=== PATIENT | female | born 1965 | race Caucasian/White ===

== ENCOUNTER → 2016-11-27 | Outpatient (CLI) | payer BC ==
[~2016-11-27] VITALS: Ht 172.7 cm; Wt 92.1 kg
[~2016-11-27] MED LIST: DRIS50002 PO; GLYCOPYRROLATE INJ 0.2 MG/ML 2 ML VIAL As Ordered ONE; LEVO112T2 PO; LIDOCAINE 2% INJ 100 MG/5 ML SDV (FOR ANES.) As Ordered ONE; PROPOFOL 200 MG/20 ML VIAL As Ordered ONE
[2016-11-27] MEDS: NS 500 ML IV SCH ×2 (07:00→07:15)
--- NOTE | 2016-11-27 08:14 | ROOR ---
Patient Name: Fanta Hernandes Procedure Date: 11/27/2016 7:27 AM Date of : 1965 Age: 51 Room: [facility] Gender: Female Note Status: Finalized Procedure: Upper GI endoscopy Indications: Heartburn Providers: DO Mora Mckenna MD: THAIS HARDIN Requesting Provider: Medicines: Propofol per Anesthesia Complications: No immediate complications. Procedure: Pre-Anesthesia Assessment: - Prior to the procedure, a History and Physical was performed, and patient medications and allergies were reviewed. The patient is competent. The risks and benefits of the procedure and the sedation options and risks were discussed with the patient. All questions were answered and informed consent was obtained. Patient identification and proposed procedure were verified by the physician, the nurse, the anesthesiologist and the medical coding technician in the endoscopy suite. Mental Status Examination: alert and oriented. Airway Examination: normal oropharyngeal airway and neck mobility. Respiratory Examination: clear to auscultation. CV Examination: normal. Prophylactic Antibiotics: The patient does not require prophylactic antibiotics. Prior Anticoagulants: The patient has taken no previous anticoagulant or antiplatelet agents. ASA Grade Assessment: II - A patient with mild systemic disease. After reviewing the risks and benefits, the patient was deemed in satisfactory condition to undergo the procedure. The anesthesia plan was to use monitored anesthesia care (MAC). Immediately prior to administration of medications, the patient was re-assessed for adequacy to receive sedatives. The heart rate, respiratory rate, oxygen saturations, blood pressure, adequacy of pulmonary ventilation, and response to care were monitored throughout the procedure. The physical status of the patient was re-assessed after the procedure. The Endoscope was introduced through the mouth, and advanced to the third part of duodenum. The upper GI endoscopy was accomplished without difficulty. The patient tolerated the procedure well. Findings: Localized mild inflammation characterized by congestion (edema) and erythema was found in the prepyloric region of the stomach. Biopsies were taken with a cold forceps for Helicobacter pylori testing. The Z-line was irregular. Biopsies were taken with a cold forceps for histology. The exam was otherwise without abnormality. Impression: - Gastritis. Biopsied. - Z-line irregular. Biopsied. - The examination was otherwise normal. Recommendation: - Patient has a contact number available for emergencies. The signs and symptoms of potential delayed complications were discussed with the patient. Return to normal activities tomorrow. Written discharge instructions were provided to the patient. - Telephone my office for pathology results in 1 week. Cheikh Recinos DO 11/27/2016 8:13:48 AM This report has been signed electronically. Number of Addenda: 0 Note Initiated On: 11/27/2016 7:27 AM Estimated Blood Loss: Estimated blood loss was minimal.
--- NOTE | 2016-11-27 08:18 | ROOR ---
Patient Name: Fanta Hernandes Procedure Date: 11/27/2016 7:30 AM Date of : 1965 Age: 51 Room: [facility] Gender: Female Note Status: Finalized Procedure: Colonoscopy Indications: Screening for colorectal malignant neoplasm Providers: DO Mora Mckenna MD: THAIS HARDIN Requesting Provider: Medicines: Propofol per Anesthesia Complications: No immediate complications. Procedure: Pre-Anesthesia Assessment: - Prior to the procedure, a History and Physical was performed, and patient medications and allergies were reviewed. The patient is competent. The risks and benefits of the procedure and the sedation options and risks were discussed with the patient. All questions were answered and informed consent was obtained. Patient identification and proposed procedure were verified by the physician, the nurse, the anesthesiologist and the donor services technician in the endoscopy suite. Mental Status Examination: alert and oriented. Airway Examination: normal oropharyngeal airway and neck mobility. Respiratory Examination: clear to auscultation. CV Examination: normal. Prophylactic Antibiotics: The patient does not require prophylactic antibiotics. Prior Anticoagulants: The patient has taken no previous anticoagulant or antiplatelet agents. ASA Grade Assessment: II - A patient with mild systemic disease. After reviewing the risks and benefits, the patient was deemed in satisfactory condition to undergo the procedure. The anesthesia plan was to use monitored anesthesia care (MAC). Immediately prior to administration of medications, the patient was re-assessed for adequacy to receive sedatives. The heart rate, respiratory rate, oxygen saturations, blood pressure, adequacy of pulmonary ventilation, and response to care were monitored throughout the procedure. The physical status of the patient was re-assessed after the procedure. The Colonoscope was introduced through the anus and advanced to the cecum, identified by the appendiceal orifice, ileocecal valve and palpation. The colonoscopy was performed without difficulty. The patient tolerated the procedure well. Findings: Two semi-pedunculated polyps were found in the sigmoid colon and descending colon. The polyps were 4 to 8 mm in size. These polyps were removed with a hot snare. Resection and retrieval were complete. Estimated blood loss was minimal. Multiple carpet-like polyps were found in the sigmoid colon. The polyps were medium in size. These were biopsied with a cold forceps for histology. Estimated blood loss was minimal. A few small-mouthed diverticula were found in the sigmoid colon. The exam was otherwise without abnormality on direct and retroflexion views. Impression: - Two 4 to 8 mm polyps in the sigmoid colon and in the descending colon, removed with a hot snare. Resected and retrieved. - Multiple medium polyps in the sigmoid colon. Biopsied. - Diverticulosis in the sigmoid colon. - The examination was otherwise normal on direct and retroflexion views. Recommendation: - Patient has a contact number available for emergencies. The signs and symptoms of potential delayed complications were discussed with the patient. Return to normal activities tomorrow. Written discharge instructions were provided to the patient. - Repeat colonoscopy date to be determined after pending pathology results are reviewed for surveillance after piecemeal polypectomy. - Await pathology results. - Telephone my office for pathology results in 1 week. Cheikh Recinos DO 11/27/2016 8:18:08 AM This report has been signed electronically. Number of Addenda: 0 Note Initiated On: 11/27/2016 7:30 AM Estimated Blood Loss: Estimated blood loss was minimal.
[2016-11-27 08:35] VITALS: BP 118/78
== END ==
LOC: M OPP 06:27
PROVIDERS: ATTEND Surgery
DX: Z12.11 Encounter for screening for malignant neoplasm of colon (principal); D12.4 Benign neoplasm of descending colon; D12.5 Benign neoplasm of sigmoid colon; K57.30 Diverticulosis of large intestine without perforation or abscess without bleeding; R12 Heartburn; K29.70 Gastritis, unspecified, without bleeding; K22.8 Other specified diseases of esophagus; E03.9 Hypothyroidism, unspecified; K21.9 Gastro-esophageal reflux disease without esophagitis; Z87.891 Personal history of nicotine dependence; Z79.899 Other long term (current) drug therapy

== ENCOUNTER → 2017-04-03 | Outpatient (CLI) | payer BC ==
[~2017-04-03] MED LIST changes: -GLYCOPYRROLATE INJ 0.2 MG/ML 2 ML VIAL As Ordered ONE; -LIDOCAINE 2% INJ 100 MG/5 ML SDV (FOR ANES.) As Ordered ONE; -PROPOFOL 200 MG/20 ML VIAL As Ordered ONE
--- NOTE | 2017-04-03 09:59 | REPMRS ---
Patient History The patient states she had a clinical breast exam in 03/2017. Patient is postmenopausal. Family history of colorectal cancer in sister. Took hormonal contraceptives for 20 years. Took unspecified hormones for 5 years. Digital Woman Screen Mammo: April 03, 2017 - Exam #: [id number] Bilateral CC and MLO view(s) were taken. Technologist: Kiara Clay, Technologist Prior study comparison: April 02, 2016, digital woman screen mammo performed at [facility]. March 07, 2015, digital woman screen mammo performed at [facility]. FINDINGS: There are scattered fibroglandular densities. There has been no change in the appearance of the mammogram from the prior studies. There is a mild amount of residual fibroglandular tissue which is fairly symmetric. There is no interval development of dominant mass, architectural distortion, or clustered microcalcification suggestive of malignancy. ASSESSMENT: BI-RADS/ACR category 1 mammogram. Negative. Recommendation Routine screening mammogram in 1 year (for women over age 40). This mammogram was interpreted with the aid of an FDA-approved computer-aided dectection system. Electronically Signed By: Cheikh Ritchie MD 04/03/17 0958
== END ==
LOC: M WHC 08:41
PROVIDERS: ATTEND Nurse Practitioner Women's Health
DX: Z12.31 Encounter for screening mammogram for malignant neoplasm of breast (principal)

== ENCOUNTER → 2017-04-03 | Outpatient (REF) | payer BC | LOC: M SFHCWAGY 10:11 | PROVIDERS: ATTEND Nurse Practitioner Women's Health | DX: Z12.4 Encounter for screening for malignant neoplasm of cervix (principal) ==

== ENCOUNTER → 2018-07-01 | Outpatient (CLI) | payer BC ==
[~2018-07-01] MED LIST changes: -DRIS50002 PO; +DRIS50003 PO
--- NOTE | 2018-07-01 14:22 | REPMRS ---
Patient History The patient states she had a clinical breast exam in 07/04 Family history of colorectal cancer in sister. Took hormonal contraceptives for 20 years. Took unspecified hormones for 5 years. Digital Woman Screen Mammo: July 01, 2018 - Exam #: [id number] Bilateral CC and MLO view(s) were taken. Technologist: Priscila Guardado, Technologist Prior study comparison: April 03, 2017, digital woman screen mammo performed at [facility]. April 02, 2016, digital woman screen mammo performed at [facility]. March 07, 2015, digital woman screen mammo performed at [facility]. FINDINGS: There are scattered fibroglandular densities. There has been no change in the appearance of the mammogram from the prior studies. There is a mild amount of scattered fibroglandular density which is fairly symmetric. There is no interval development of dominant mass, architectural distortion, or clustered microcalcification suggestive of malignancy. 3-D tomosynthesis shows no additional findings. Assessment: BI-RADS/ACR category 1 mammogram. Negative. Recommendation Routine screening mammogram of both breasts in 1 year (for women over age 40). This patient's Lifetime Breast Cancer RIsk is estimated at 10.7 %. This mammogram was interpreted with the aid of an FDA-approved computer-aided dectection system. Electronically Signed By: Manuel Chaney MD 07/01/18 1383
== END ==
LOC: M WHC 11:06
PROVIDERS: ATTEND Nurse Practitioner Women's Health
DX: Z12.31 Encounter for screening mammogram for malignant neoplasm of breast (principal); Z92.29 Personal history of other drug therapy; Z92.0 Personal history of contraception; Z80.0 Family history of malignant neoplasm of digestive organs

== ENCOUNTER 2018-10-14 09:00 | Day surgery (SDC) | payer BC ==
[~2018-10-14] VITALS: Ht 172.7 cm; Wt 90.9 kg
[2018-10-14] MEDS ORDERED: KETOROLAC 30 MG/ML VIAL (J1885) IV ONE (09:15)
[2018-10-14] MEDS ORDERED: NS 1,000 ML IV ONE (09:15)
[2018-10-14 09:29] LABS: BASO # 0.1 10^3/uL (0.0-0.2); BASO % 0.8 % (0.0-1.0); EOS # 0.1 10^3/uL (0.0-0.50); EOS % 0.5 % (0.0-3.0); HEMATOCRIT 40.6 % (36.0-47.0); HEMOGLOBIN 13.6 g/dl (12.0-15.5); LYMPH # 2.3 10^3/uL (1.5-4.5); LYMPH % 16.4 % (24.0-44.0); MEAN CORPUSCULAR HEMOGLOBIN 31.3 pg (27.0-33.0); MEAN CORPUSCULAR HGB CONC 33.5 g/dl (32.0-36.5); MEAN CORPUSCULAR VOLUME 93.3 fl (80.0-96.0); MONO # 0.8 10^3/uL (0.0-0.8); MONO % 5.3 % (0.0-5.0); NEUTROPHILS # 10.9 10^3/uL (1.8-7.7); NEUTROPHILS % 76.2 % (36.0-66.0); PLATELET COUNT, AUTOMATED 247 10^3/uL (150-450); RED BLOOD COUNT 4.35 10^6/uL (4.00-5.40); WHITE BLOOD COUNT 14.3 10^3/uL (4.0-10.0)
[2018-10-14 09:52] LABS: ALBUMIN 4.4 GM/DL (3.2-5.2); ALT/SGPT 26 U/L (12-78); AMYLASE 20 U/L (25-115); BILIRUBIN,DIRECT 0.1 MG/DL (0.0-0.2); BILIRUBIN,TOTAL 0.4 MG/DL (0.2-1.0); BLOOD UREA NITROGEN 11 MG/DL (7-18); CALCIUM LEVEL 9.2 MG/DL (8.5-10.1); CARBON DIOXIDE LEVEL 27 MEQ/L (21-32); CHLORIDE LEVEL 102 MEQ/L (98-107); CREATININE FOR GFR 0.68 MG/DL (0.55-1.30); GLOMERULAR FILTRATION RATE > 60.0 (>51); GLUCOSE, FASTING 111 MG/DL (70-100); LIPASE 219 U/L (73-393); POTASSIUM SERUM 4.1 MEQ/L (3.5-5.1); SODIUM LEVEL 135 MEQ/L (136-145); TOTAL PROTEIN 7.3 GM/DL (6.4-8.2)
[2018-10-14] MEDS ORDERED: ISOVUE-370 76% 100ML VIAL (Q9967) As Ordered ONE (10:19)
--- NOTE | 2018-10-14 11:25 | REP ---
CT ABDOMEN AND PELVIS WITHOUT CONTRAST: CT abdomen and pelvis performed without oral or IV contrast. Sagittal and coronal reconstruction images are performed. The visualized lung bases demonstrate no evidence of acute infiltrate. There is a small hiatal hernia. There is as small right inguinal hernia containing an incarcerated loop of small bowel and a small amount of fluid. There is resultant small bowel obstruction with moderate dilatation of multiple small bowel loops proximal to this. Liver is grossly unremarkable. Gallbladder appears to contain complex material with some calcification in the wall of the gallbladder. I see no biliary dilatation. The spleen, adrenals, pancreas and kidneys appear grossly unremarkable. There is no hydronephrosis bilaterally. There is no abdominal aortic aneurysm with mild atherosclerotic calcifications. I see no adenopathy, free air or free fluid. I see no pelvic mass. Urinary bladder is grossly unremarkable. Appendix is not visualized. IMPRESSION: Incarcerated right inguinal hernia contains an obstructed small bowel loop and a small amount of fluid. There is small bowel obstruction as a result with multiple moderately dilated small bowel loops in the abdomen. No free air or free fluid. No renal or ureteral calculus and no hydroureteronephrosis. There are calcifications in the gallbladder wall, which contains complex material. I cannot exclude underlying gallbladder mass. Electronically Signed by Cheikh Ritchie MD 10/16/2018 11:46 A
[2018-10-14] MEDS ORDERED: MORPHINE 4 MG/ML 1ML VIAL/SYRINGE (J2270) IV ONE (11:30)
[2018-10-14] MEDS ORDERED: ONDANSETRON 4MG/2ML VIAL (J2405) IV ONE (11:45)
[2018-10-14] MEDS ORDERED: BUPIVACAINE/EPIN 0.25% 30 ML VIAL As Ordered ONE (16:53)
[2018-10-14] MEDS ORDERED: ONDANSETRON 4MG/2ML VIAL (J2405) As Ordered ONE (17:07)
[2018-10-14] MEDS ORDERED: LIDOCAINE 2% INJ 100 MG/5 ML SDV (FOR ANES.) As Ordered ONE ×3 (17:07→18:21)
[2018-10-14] MEDS ORDERED: dexameTHASONE 4 MG/ML 1ML VIAL (J1100) As Ordered ONE (17:07)
[2018-10-14] MEDS ORDERED: ROCURONIUM BROMIDE 50 MG/5 ML VIAL As Ordered ONE ×2 (17:07→18:32)
[2018-10-14] MEDS ORDERED: MIDAZOLAM INJ 2 MG/2 ML VIAL (J2250) As Ordered ONE (17:07)
[2018-10-14] MEDS ORDERED: PROPOFOL 200 MG/20 ML VIAL As Ordered ONE ×2 (17:07→17:52)
[2018-10-14] MEDS ORDERED: fentaNYL 100 MCG/2 ML INJECTION (J3010) As Ordered ONE ×2 (17:08→17:52)
[2018-10-14] MEDS ORDERED: ceFAZolin 1GM INJ (J0690 PER 500MG) As Ordered ONE (17:08)
[2018-10-14] MEDS ORDERED: SUGAMMADEX SODIUM 500 MG/5 ML VIAL (BRIDION) As Ordered ONE (18:07)
[2018-10-14] MEDS ORDERED: KETOROLAC 60 MG/2 ML VIAL (J1885) As Ordered ONE (18:08)
[2018-10-14] MEDS ORDERED: ACETAMINOPHEN 1000MG 100ML IV BTL (OFIRMEV) (J0131 PER 10MG) As Ordered ONE (18:08)
[2018-10-14] MEDS ORDERED: D5W/LR 1,000 ML IV SCH (18:47)
[2018-10-14] MEDS ORDERED: ONDANSETRON 4MG/2ML VIAL (J2405) IV PRN ×2 (19:00→19:15)
[2018-10-14] MEDS ORDERED: MORPHINE 4 MG/ML 1ML VIAL/SYRINGE (J2270) IV PRN (19:00)
[2018-10-14] MEDS ORDERED: ACETAMINOPHEN TAB 650MG DOSE (2X325MG) PO PRN (19:00)
[2018-10-14] MEDS ORDERED: NORCO, ANEXSIA 5/325MG TABLET (HYDROcodone/ACETAMINOPHEN) PO PRN (19:00)
[2018-10-14] MEDS ORDERED: METOCLOPRAMIDE INJ 10MG/2ML VIAL (J2765) IV PRN ×2 (19:00→19:15)
[2018-10-14] MEDS ORDERED: PROMETHAZINE INJ 25 MG/ML VIAL (J2550) IV PRN (19:00)
[2018-10-14] MEDS ORDERED: fentaNYL 100 MCG/2 ML INJECTION (J3010) IV PRN (19:15)
[2018-10-14] MEDS ORDERED: PERCOCET 5MG/325MG TAB PO PRN (19:15)
[2018-10-14] MEDS ORDERED: LR 1,000 ML IV SCH (19:15)
[2018-10-14 19:50] VITALS: BP 129/61
[2018-10-14 20:20] VITALS: BP 108/57
[2018-10-14] MEDS: KETOROLAC 30 MG/ML VIAL (J1885) IV SCH (20:39)
[2018-10-14 20:50] VITALS: BP 112/63
[2018-10-14 21:50] VITALS: BP 105/58
[2018-10-14 22:50] VITALS: BP 108/55
[2018-10-14 23:50] VITALS: BP 108/63
[2018-10-15 00:50] VITALS: BP 119/57
[2018-10-15] MEDS: KETOROLAC 30 MG/ML VIAL (J1885) IV SCH ×2 (02:47→08:40)
[2018-10-15 04:00] VITALS: BP 99/55
[2018-10-15] MEDS ORDERED: LEVOTHYROXINE 112MCG TABLET (0.112MG) PO SCH (06:00)
--- NOTE | 2018-10-15 06:11 | HPE ---
DATE OF ADMISSION: 10/14/2018 CHIEF COMPLAINT: Abdominal pain, specifically right lower quadrant pain. HISTORY OF PRESENT ILLNESS: The patient is a 53-year-old female who presents with approximately 24 hours of abdominal pain but has noticed over the last year that she has had a bulge in the right inguinal area and recalls even further back than the last year that she has felt a lump in the right groin area along the groin crease. She states that it has not been painful or problematic but notices occasional swelling in this area. In any case this area became painful and uncomfortable approximately 12 hours prior to admission and presents to the emergency room with an incarcerated right inguinal / possible femoral hernia on CAT scan. She had the evidence of small bowel obstruction. I was asked to see her earlier today and once I saw her I was able to partially reduce this hernia and she had some improvement of this and the size of the hernia actually decreased by half when I saw her and more importantly later on after placing her in Trendelenburg and putting an ice pack on, after about an hour of time I reexamined her and was able to reduce this area down to approximately 2 cm in size compared to the 6-8 cm size lump that I felt in the groin. After doing this she felt relief of the discomfort, was not having any more pain in the groin, was not complaining of any abdominal pain, no crampy abdominal pain and she did well with this until she got up to use the bathroom to urinate and then developed pain and swelling back in the groin area. Thus we discussed with the patient proceeding with operative intervention for this. PAST MEDICAL HISTORY: Past medical history is significant for history of: 1. Hyperthyroidism. 2. Colonoscopy with diverticulosis and colonic polyps. 3. Gastroesophageal (GE) reflux with some gastritis. 4. Hyperthyroidism on image done earlier. MEDICATIONS: - Synthroid - Drisdol - vitamin D complex SOCIAL HISTORY: History of smoking. PHYSICAL EXAMINATION: GENERAL: 53-year-old female who looks stated age. HEENT is unremarkable. NECK: Supple without adenopathy. LUNGS: Clear to auscultation without crackles, wheezes or rhonchi. HEART: Regular without murmur. ABDOMEN: Abdomen is soft, nondistended, nontender. No guarding, no rebound. No peritoneal signs are appreciated and essentially has a very benign-appearing abdominal exam and despite having the evidence of a small bowel obstruction on her CAT scan there really is no evidence on her abdominal physical exam. In the right groin as I described earlier, she did have a palpable mass in the groin. Initially this was mildly uncomfortable with palpation and it sounds as though she had this attempted to be reduced by the emergency room physician after she came back from the CAT scan and I anticipate she probably reduced the small bowel at that time. Otherwise, it may have been the second time that I examined when I was able to reduce more of the contents of the hernia but at this point she had good resolution of abdominal pain and groin pain, suggesting that the obstruction has resolved. IMPRESSION AND PLAN: The patient had some improvement. Unfortunately with standing up/and using the bathroom she noticed increasing pain and swelling in the right groin and thus wee discussed proceeding with operative intervention for this. The plan would be exploration of the right groin with probable inguinal hernia repair (possible femoral hernia repair) given the CAT scan is suggestive of a femoral hernia more so than a typical inguinal hernia given its location despite the report suggesting it was an inguinal hernia. In any case we have discussed the fact that with this bowel obstruction will open the hernia sac and if there a damaged bowel she may require a small bowel resection, although I feel this is unlikely given her clinical course today and will plan on operative repair of this. Depending on the hernia, if this is a typical inguinal hernia then a hernia repair with mesh is the repair that I have discussed with her as well as a possible plug repair of a femoral hernia should this be the case. The risks as well as benefits have been discussed with her at length and she understands and would like to proceed with this as soon as possible.
--- NOTE | 2018-10-15 06:27 | RO ---
DATE OF PROCEDURE: 10/14/2018 PREOPERATIVE DIAGNOSIS: Right groin hernia. POSTOPERATIVE DIAGNOSIS: Right incarcerated femoral hernia. PROCEDURE: Repair of incarcerated right femoral hernia with mesh. SURGEON: Dr. Nimesh Aguilera BEHAVIORAL HEALTH PROFESSIONAL: ANESTHESIA: General endotracheal anesthesia. ESTIMATED BLOOD LOSS: Minimal. FLUIDS: Crystalloid. BRIEF PROCEDURE SUMMARY: The patient was taken operating room and was given general anesthesia. After adequate anesthesia and preoperative antibiotics were given, the patient was prepped and draped in the usual sterile fashion. Next, a curvilinear incision overlying the palpable mass in the right groin area was made with skin knife. Electrocautery was used to cut through dermis and underlying subcutaneous tissue down through Mary Lou's layer which was actually a relatively thickened layer, but there was some edema starting from this layer deeper into the deeper subcutaneous tissue and up to the external oblique. The external oblique muscle was followed to level of where the hernia was and this was followed circumferentially to the level of what appeared to the femoral canal. Once this was dissected out, then a small incision along the inguinal ligament was made to release the femoral hernia to some extent. Once this was released, then I was able to mobilize the hernia a little bit more into the wound itself, entering the hernia sac itself. There was some clear fluid in this, but the fascial defect was only about 8 mm in size and I did not see any small bowel within this itself. I did not see any evidence of turbid fluid, no bloody fluid that suggested some bowel infarction or bowel compromise. Thus after mobilizing the hernia sac all the way to the level of just above the fascia, I transected this and then ligated the hernia sac circumferential and then placed this in the preperitoneal space. A hernia plug was created using ultra Pro mesh and rolling it up into a plug and placing this in the preperitoneal space through this fascial defect. It was about 7-8 mm in size. The edges of the mesh were then sutured to the inguinal ligament superiorly and the pubis laterally. The small incision over the inguinal ligament that helped divide this and make it easier to mobilize the hernia sac was closed prior to this plug placement with some [id number] #0 Vicryl sutures. Next, subcutaneous tissue, Mary Lou's layer was closed with interrupted #2-0 Vicryl, #3-0 Vicryl was used to approximate dermis, #4-0 Vicryl was used to approximate the skin. Steri-Strips and a dry sterile dressing was applied. The patient was awakened, extubated and brought to the recovery room awake, alert and hemodynamically stable. Sponge and needle counts were correct times two.
[2018-10-15 08:00] VITALS: BP 97/52
[2018-10-15] MEDS ORDERED: IBUP-1022 PO (09:57)
== END 2018-10-15 12:20 | disposition home or self-care (01) ==
LOC: M ED 09:00 → M SDC 16:00 → M PED 19:50 → M SDC 10-15 12:20
PROVIDERS: ATTEND Surgery
DX: K41.30 Unilateral femoral hernia, with obstruction, without gangrene, not specified as recurrent (principal); E03.9 Hypothyroidism, unspecified; E66.9 Obesity, unspecified; G47.33 Obstructive sleep apnea (adult) (pediatric); K21.9 Gastro-esophageal reflux disease without esophagitis; K57.30 Diverticulosis of large intestine without perforation or abscess without bleeding; Z72.0 Tobacco use; Z92.3 Personal history of irradiation; Z86.010 Personal history of colon polyps
CPT/HCPCS: 49553; 74176; 80048; 80076; 82150; 83690; 85025; 88302; 96374; 96375; 99284; C1781; J0131; J0690; J1100; J1885; J2250; J2270; J2405; J3010

== ENCOUNTER → 2020-07-04 | Outpatient (CLI) | payer BC ==
[~2020-07-04] MED LIST changes: +IBUP-1022 PO
--- NOTE | 2020-07-04 08:51 | REPMRS ---
Patient History The patient states she had a clinical breast exam in 06/2020 Family history of colorectal cancer in sister. Took hormonal contraceptives for 20 years. Took unspecified hormones for 5 years. 3D TOMOSYNTHESIS WAS PERFORMED. [facility] for [facility]%. Volpara breast density a. Digital Woman Screen Mammo: July 04, 2020 - Exam #: [id number] Bilateral CC and MLO view(s) were taken. Technologist: Priscila Guardado, Technologist Prior study comparison: July 02, 2019, bilateral digital woman screen mammo performed at [facility]. July 01, 2018, bilateral digital woman screen mammo performed at [facility]. FINDINGS: There are scattered fibroglandular densities. There has been no change in the appearance of the mammogram from the prior studies. There is a mild amount of residual fibroglandular tissue which is fairly symmetric. There is no interval development of dominant mass, architectural distortion, or clustered microcalcification suggestive of malignancy. Assessment: BI-RADS/ACR category 1 mammogram. Negative Mammogram. Recommendation Routine screening mammogram in 1 year (for women over age 40). This mammogram was interpreted with the aid of an FDA-approved computer-aided dectection system. Electronically Signed By: Cheikh Ritchie MD 07/04/20 0876
== END ==
LOC: M WHC 08:09
PROVIDERS: ATTEND Nurse Practitioner Women's Health
DX: Z12.31 Encounter for screening mammogram for malignant neoplasm of breast (principal)

== ENCOUNTER → 2022-10-03 | Outpatient (REF) | payer OTHER | LOC: M SFHCWAGY 13:26 | PROVIDERS: ATTEND Nurse Practitioner Family | DX: Z12.4 Encounter for screening for malignant neoplasm of cervix (principal) | CPT/HCPCS: 87624; G0123 ==

== ENCOUNTER → 2022-10-03 | Outpatient (CLI) | payer BC, OTHER | LOC: M WHC 08:42 | PROVIDERS: ATTEND Nurse Practitioner Family | DX: Z12.31 Encounter for screening mammogram for malignant neoplasm of breast (principal) ==

== ENCOUNTER → 2022-10-11 | Outpatient (CLI) | payer OTHER | LOC: M WHC 10:03 | PROVIDERS: ATTEND Nurse Practitioner Family | DX: Z13.820 Encounter for screening for osteoporosis (principal); M85.88 Other specified disorders of bone density and structure, other site; M85.851 Other specified disorders of bone density and structure, right thigh; M85.852 Other specified disorders of bone density and structure, left thigh ==

== ENCOUNTER 2022-12-05 11:09 | Day surgery (SDC) | payer OTHER ==
[~2022-12-05] VITALS: Ht 170.2 cm; Wt 90.3 kg
[~2022-12-05 11:09] MED LIST changes: +ASPI81TA26 PO; +D3 S20002 PO; +NS 1,000 ML IV ONE
[2022-12-05] MEDS ORDERED: propofoL 200 MG/20 ML VIAL As Ordered ONE ×2 (12:33→13:09)
[2022-12-05] MEDS ORDERED: ONDANSETRON 4MG 2ML VIAL As Ordered ONE (12:34)
[2022-12-05] MEDS ORDERED: fentaNYL 100 MCG/2 ML INJECTION As Ordered ONE (12:34)
[2022-12-05] MEDS ORDERED: LIDOCAINE 2% 100MG/5ML SDV (FOR ANES.) As Ordered ONE (12:34)
[2022-12-05 13:20] VITALS: TEMP 97.2
[2022-12-05 13:40] VITALS: BP 106/53; O2SAT 97
== END 2022-12-05 13:49 | disposition home or self-care (01) ==
LOC: M OPP 11:09
PROVIDERS: ATTEND Surgery
DX: Z12.11 Encounter for screening for malignant neoplasm of colon (principal); Z86.010 Personal history of colon polyps; K63.5 Polyp of colon; K57.30 Diverticulosis of large intestine without perforation or abscess without bleeding; K22.70 Barrett's esophagus without dysplasia; K21.00 Gastro-esophageal reflux disease with esophagitis, without bleeding; K31.89 Other diseases of stomach and duodenum; F17.200 Nicotine dependence, unspecified, uncomplicated; Z79.82 Long term (current) use of aspirin; Z79.890 Hormone replacement therapy
CPT/HCPCS: 43239; 45380; 45385; 88305; J2405; J3010

== ENCOUNTER → 2023-10-29 | Outpatient (CLI) | payer OTHER ==
[~2023-10-29] MED LIST changes: -NS 1,000 ML IV ONE
== END ==
LOC: M WHC 09:11
PROVIDERS: ATTEND Nurse Practitioner Family
DX: Z12.31 Encounter for screening mammogram for malignant neoplasm of breast (principal)

== ENCOUNTER → 2025-06-07 | Outpatient (CLI) | payer OTHER ==
[~2025-06-07] MED LIST changes: -IBUP-1022 PO; +IBUP600T42 PO
== END ==
LOC: M WHC 13:21
PROVIDERS: ATTEND Nurse Practitioner Family
DX: Z12.31 Encounter for screening mammogram for malignant neoplasm of breast (principal); R92.313 Mammographic fatty tissue density, bilateral breasts; Z13.820 Encounter for screening for osteoporosis; F17.219 Nicotine dependence, cigarettes, with unspecified nicotine-induced disorders; M81.0 Age-related osteoporosis without current pathological fracture